=== PATIENT | male | born 1970 | race Caucasian/White ===

== ENCOUNTER 2022-01-15 11:07 | Emergency (ER) | payer BC ==
[2022-01-15 11:59] LABS: Basophils % (A) 0 %; Eosinophils # (A) 0.1 k/uL (0-0.7); Eosinophils % (A) 1 %; HCT 30.4 % (39.0-53.0); HGB 9.7 gm/dL (13.0-17.5); Lymphocytes # (A) 0.7 k/uL (1.0-4.8); Lymphocytes % (A) 5 %; MCH 32.1 pg (25.0-35.0); MCV 100.4 fL (80.0-100.0); Mean Platelet Volume 7.9; Monocytes # (A) 0.8 k/uL (0-1.0); Monocytes % (A) 5 %; Neutrophils # (A) 12.7 k/uL (1.3-7.7); Neutrophils % (A) 89 %; Platelet Count 287 k/uL (150-450); RBC 3.03 m/uL (4.30-5.90); RDW 12.3 % (11.5-15.5); WBC 14.3 k/uL (3.8-10.6)
[2022-01-15 12:07] LABS: Albumin 4.3 g/dL (3.5-5.0); Calcium 8.9 mg/dL (8.4-10.2); Potassium 4.9 mmol/L (3.5-5.1); Total Bilirubin 1.3 mg/dL (0.2-1.3); Total Protein 6.5 g/dL (6.3-8.2)
[2022-01-15] MEDS ORDERED: PANTOPRAZOLE 40 MG/10 ML VIAL IVP STA (12:12)
[2022-01-15] MEDS ORDERED: SODIUM CHLORIDE 0.9% 500 ML 500 ML IV ONE ×2 (12:12→13:10)
--- NOTE | 2022-01-15 12:12 | ED ---
General Adult HPI - General Chief complaint: GI Bleed Stated complaint: Fall/SOB Time Seen by Provider: 01/15/22 12:02 Source: patient, family, RN notes reviewed, old records reviewed Mode of arrival: wheelchair Limitations: no limitations - History of Present Illness Initial comments: 51-year-old male presents for evaluation of "not feeling well". He states he has not felt well for several weeks. He's had some intermittent abdominal pain. Over the past one week he's had dark red rectal bleeding. He states he's had chills without measured fever. He had a fall yesterday secondary to weakness and injured the left side of his chest wall. His had some pain associated with this as well. He does admit to alcohol use. - Related Data Allergies Allergy/AdvReac Type Severity Reaction Status Date / Time No Known Allergies Allergy Verified 01/15/22 11:31 Review of Systems ROS Statement: Those systems with pertinent positive or pertinent negative responses have been documented in the HPI. ROS Other: All systems not noted in ROS Statement are negative. Past Medical History Past Medical History: No Reported History History of Any Multi-Drug Resistant Organisms: None Reported Past Surgical History: No Surgical Hx Reported Past Psychological History: No Psychological Hx Reported Smoking Status: Current every day smoker Past Alcohol Use History: Abuse, Daily Past Drug Use History: None Reported General Exam Limitations: no limitations General appearance: alert, in no apparent distress Head exam: Present: atraumatic, normocephalic Eye exam: Present: normal appearance, PERRL ENT exam: Present: mucous membranes dry Neck exam: Present: normal inspection. Absent: tenderness, meningismus Respiratory exam: Present: normal lung sounds bilaterally. Absent: respiratory distress, wheezes Cardiovascular Exam: Present: normal rhythm, tachycardia GI/Abdominal exam: Present: soft, distended, hernia Rectal exam: Absent: black stool, bloody stool, hemorrhoids Extremities exam: Present: normal inspection, normal capillary refill. Absent: calf tenderness Neurological exam: Present: alert, oriented X3, CN II-XII intact. Absent: motor sensory deficit Psychiatric exam: Present: flat affect Skin exam: Present: warm, pallor Course Vital Signs 01/15/22 01/15/22 11:25 14:55 Temperature 97.6 F Pulse Rate 107 H 98 Respiratory 22 18 Rate Blood Pressure 90/61 116/97 O2 Sat by Pulse 98 98 Oximetry EKG Findings - EKG Comments: EKG Findings:: EKG: Sinus tachycardia, rate of 111, NJ interval 147, QRS duration 90, QTC 372, no ST segment elevation. Medical Decision Making - Medical Decision Making 51-year-old male who presents with generalized weakness, one-week of suspected lower GI bleed and a fall which occurred yesterday. Patient did have left-sided chest pain and very faint ecchymosis over the left lateral chest wall. Workup was initiated including chest x-ray lateral rib fractures. CT of the abdomen was ordered which showed large renal hematoma with perinephric hemorrhage. Hemoglobin is 9.7 with no old for comparison. He does have a mild leukocytosis. Additionally the lactic acid is significantly elevated at 8. White blood cell count 14. Patient does respond well to initial fluid bolus. Additionally 1 unit of packed RBCs disorder. I discussed the case at length with Dr. Samantha escudero for urology after review the imaging it is felt that the patient will be better served with transfer to higher level of care. Additionally given a history of rectal bleeding over the past one week the patient should be transferred as this institution does not have gastroenterology currently. He's given fluids, empiric antibiotics were ordered for elevated white blood cell count, hypotension and lactic acidosis. 2 g Rocephin given. Blood cultures are pending. No source of infection is identified currently. He will be transferred to [facility], case discussed with Dr. Sparks. - Lab Data Result diagrams: 01/15/22 11:46 01/15/22 11:46 Lab Results 01/15/22 01/15/22 01/15/22 Range/Units 11:46 11:46 11:46 WBC 14.3 H (3.8-10.6) k/uL RBC 3.03 L (4.30-5.90) m/uL Hgb 9.7 L (13.0-17.5) gm/dL Hct 30.4 L (39.0-53.0) % MCV 100.4 H (80.0-100.0) fL MCH 32.1 (25.0-35.0) pg MCHC 32.0 (31.0-37.0) g/dL RDW 12.3 (11.5-15.5) % Plt Count 287 (150-450) k/uL MPV 7.9 Neutrophils % 89 % Lymphocytes % 5 % Monocytes % 5 % Eosinophils % 1 % Basophils % 0 % Neutrophils # 12.7 H (1.3-7.7) k/uL Lymphocytes # 0.7 L (1.0-4.8) k/uL Monocytes # 0.8 (0-1.0) k/uL Eosinophils # 0.1 (0-0.7) k/uL Basophils # 0.0 (0-0.2) k/uL PT 9.9 (9.0-12.0) sec INR 0.9 (<1.2) APTT 21.0 L (22.0-30.0) sec Sodium 132 L (137-145) mmol/L Potassium 4.9 (3.5-5.1) mmol/L Chloride 94 L (98-107) mmol/L Carbon Dioxide 20 L (22-30) mmol/L Anion Gap 18 mmol/L BUN 24 H (9-20) mg/dL Creatinine 1.71 H (0.66-1.25) mg/dL Est GFR (CKD-EPI)AfAm 52 (>60 ml/min/1.73 sqM) Est GFR (CKD-EPI)NonAf 45 (>60 ml/min/1.73 sqM) Glucose 191 H (74-99) mg/dL Lactic Ac Sepsis Rflx Plasma Lactic Acid Jorgito (0.7-2.0) mmol/L Calcium 8.9 (8.4-10.2) mg/dL Magnesium (1.6-2.3) mg/dL Total Bilirubin 1.3 (0.2-1.3) mg/dL AST 33 (17-59) U/L ALT 33 (4-49) U/L Alkaline Phosphatase 50 (38-126) U/L Troponin I (0.000-0.034) ng/mL Total Protein 6.5 (6.3-8.2) g/dL Albumin 4.3 (3.5-5.0) g/dL Lipase (23-300) U/L Serum Alcohol mg/dL Blood Type Blood Type Confirm Blood Type Recheck Bld Type Recheck Status Antibody Screen Crossmatch Spec Expiration Date 01/15/22 01/15/22 01/15/22 Range/Units 11:46 11:46 12:12 WBC (3.8-10.6) k/uL RBC (4.30-5.90) m/uL Hgb (13.0-17.5) gm/dL Hct (39.0-53.0) % MCV (80.0-100.0) fL MCH (25.0-35.0) pg MCHC (31.0-37.0) g/dL RDW (11.5-15.5) % Plt Count (150-450) k/uL MPV Neutrophils % % Lymphocytes % % Monocytes % % Eosinophils % % Basophils % % Neutrophils # (1.3-7.7) k/uL Lymphocytes # (1.0-4.8) k/uL Monocytes # (0-1.0) k/uL Eosinophils # (0-0.7) k/uL Basophils # (0-0.2) k/uL PT (9.0-12.0) sec INR (<1.2) APTT (22.0-30.0) sec Sodium (137-145) mmol/L Potassium (3.5-5.1) mmol/L Chloride (98-107) mmol/L Carbon Dioxide (22-30) mmol/L Anion Gap mmol/L BUN (9-20) mg/dL Creatinine (0.66-1.25) mg/dL Est GFR (CKD-EPI)AfAm (>60 ml/min/1.73 sqM) Est GFR (CKD-EPI)NonAf (>60 ml/min/1.73 sqM) Glucose (74-99) mg/dL Lactic Ac Sepsis Rflx Plasma Lactic Acid Jorgito 8.2 H* (0.7-2.0) mmol/L Calcium (8.4-10.2) mg/dL Magnesium (1.6-2.3) mg/dL Total Bilirubin (0.2-1.3) mg/dL AST (17-59) U/L ALT (4-49) U/L Alkaline Phosphatase (38-126) U/L Troponin I <0.012 (0.000-0.034) ng/mL Total Protein (6.3-8.2) g/dL Albumin (3.5-5.0) g/dL Lipase (23-300) U/L Serum Alcohol mg/dL Blood Type A Positive Blood Type Confirm Blood Type Recheck No Previous Record Bld Type Recheck Status CABO Indicated Antibody Screen NEGATIVE Crossmatch See Detail Spec Expiration Date 01/18/2022 - 231101/15/22 01/15/22 01/15/22 Range/Units 12:14 12:18 12:26 WBC (3.8-10.6) k/uL RBC (4.30-5.90) m/uL Hgb (13.0-17.5) gm/dL Hct (39.0-53.0) % MCV (80.0-100.0) fL MCH (25.0-35.0) pg MCHC (31.0-37.0) g/dL RDW (11.5-15.5) % Plt Count (150-450) k/uL MPV Neutrophils % % Lymphocytes % % Monocytes % % Eosinophils % % Basophils % % Neutrophils # (1.3-7.7) k/uL Lymphocytes # (1.0-4.8) k/uL Monocytes # (0-1.0) k/uL Eosinophils # (0-0.7) k/uL Basophils # (0-0.2) k/uL PT (9.0-12.0) sec INR (<1.2) APTT (22.0-30.0) sec Sodium (137-145) mmol/L Potassium (3.5-5.1) mmol/L Chloride (98-107) mmol/L Carbon Dioxide (22-30) mmol/L Anion Gap mmol/L BUN (9-20) mg/dL Creatinine (0.66-1.25) mg/dL Est GFR (CKD-EPI)AfAm (>60 ml/min/1.73 sqM) Est GFR (CKD-EPI)NonAf (>60 ml/min/1.73 sqM) Glucose (74-99) mg/dL Lactic Ac Sepsis Rflx Y Plasma Lactic Acid Jorgito (0.7-2.0) mmol/L Calcium (8.4-10.2) mg/dL Magnesium 1.5 L (1.6-2.3) mg/dL Total Bilirubin (0.2-1.3) mg/dL AST (17-59) U/L ALT (4-49) U/L Alkaline Phosphatase (38-126) U/L Troponin I (0.000-0.034) ng/mL Total Protein (6.3-8.2) g/dL Albumin (3.5-5.0) g/dL Lipase 56 (23-300) U/L Serum Alcohol <10 mg/dL Blood Type Blood Type Confirm A Positive Blood Type Recheck Bld Type Recheck Status Antibody Screen Crossmatch Spec Expiration Date Critical Care Time Critical Care Time: Yes Total Critical Care Time: 35 Disposition Clinical Impression: Hematochezia, Renal hematoma, left, Lactic acidosis, Acute blood loss anemia, Rib fractures Disposition: OTHER INSTITUTION NOT DEFINED Condition: Serious Is patient prescribed a controlled substance at d/c from ED?: No Referrals: None,Stated [Primary Care Provider] - 1-2 days Time of Disposition: 14:45 - Out of Hospital Transfer - Req. Specs Out of Hospital Transfer - Requested Specifics: Other Emergency Center (Transfer to [facility])
[2022-01-15 12:18] LABS: INR 0.9 (<1.2); Prothrombin Time 9.9 sec (9.0-12.0)
--- NOTE | 2022-01-15 13:00 | XR ---
EXAMINATION TYPE: XR chest 2V DATE OF EXAM: 01/15/2022 COMPARISON: NONE HISTORY: Left-sided chest pain following a fall TECHNIQUE: Frontal and lateral views of the chest are obtained. FINDINGS: There is pleural thickening along the left hemithorax and there is a small left pleural ef fusion. There is no pneumothorax. There appear to be displaced fractures of the left sixth and sevent h ribs although dedicated rib films would be useful for better evaluation. Heart size normal vasculature is not congested. There is no airspace consolidation. . IMPRESSION: Probable left rib fractures with displacement with pleural hematoma and small pleural ef fusion. There is no pneumothorax. Dedicated left rib radiographs could be useful for further evaluati on.
[2022-01-15] MEDS ORDERED: cefTRIAXone IN SWFI 1,000 MG/10 ML SYRINGE IVP STA (13:11)
[2022-01-15 13:14] LABS: Alcohol <10 mg/dL; Lipase 56 U/L (23-300); Magnesium 1.5 mg/dL (1.6-2.3)
[2022-01-15] MEDS ORDERED: SODIUM CHLORIDE 0.9% 1,000 ML IV SCH (13:15)
[2022-01-15] MEDS ORDERED: HYDROmorphone 1 MG/ML 1 ML SYRINGE IVP STA (13:30)
[2022-01-15] MEDS ORDERED: MAGNESIUM SULFATE-D5W PMX 1 GM in DEXTROSE/WATER 1 100ML.BAG IVPB ONE (13:31)
--- NOTE | 2022-01-15 14:15 | CT ---
EXAMINATION TYPE: CT abdomen pelvis w con DATE OF EXAM: 01/15/2022 COMPARISON: None HISTORY: generalized pain, GI bleed CT DLP: 1332.9 mGycm Automated exposure control for dose reduction was used. TECHNIQUE: Helical acquisition of images was performed from the lung bases through the pelvis. CONTRAST: Performed without Oral Contrast and with IV Contrast, patient injected with 100 mL of Isovue 300. FINDINGS: The visualized lung bases are clear but there is a small left pleural effusion. There is a large subcapsular fluid collection of the left kidney consistent with acute hemorrhage. Th ere is marked stranding of the perirenal fascia and left paracolic gutter consistent with acute hemor rhage. The left kidney excretes contrast promptly and symmetrically with the right kidney and there i s no hydronephrosis bilaterally. There are 2, 2-3 mm nonobstructing right renal calcifications. The caliber of the abdominal aorta is normal. The gallbladder is unremarkable. There is no focal mass or organomegaly involving the liver, pancreas or spleen. The bowel loops are normal in caliber is no evidence of obstruction. There is a large periumbilical h ernia containing fat but no bowel loops. There is no free intraperitoneal air. There is marked diverticulosis of the colon without CT evidence of diverticulitis. There is no pelvic mass, abscess or adenopathy. The osseous structures are intact. IMPRESSION: 1. Marked acute hemorrhage in the left kidney with a large capsular hematoma and hemorrhage within th e pararenal fascia and left paracolic gutter 2. No hydronephrosis or solid renal masses. 3. 2 small nonobstructing right renal calcifications. 4. small left pleural effusion. 5. Large periumbilical hernia containing fat but no bowel loops.
[2022-01-15 14:56] VITALS: RESP 18
[2022-01-15 15:40] VITALS: TEMP 98.2
[2022-01-15 16:10] VITALS: BP 132/67; PULSE 97
== END 2022-01-15 16:11 | disposition other institution (70) ==
LOC: EC 11:07
DX: S22.42XA Multiple fractures of ribs, left side, initial encounter for closed fracture (principal); E87.2 Acidosis; K92.1 Melena; D62 Acute posthemorrhagic anemia; D72.829 Elevated white blood cell count, unspecified; F17.200 Nicotine dependence, unspecified, uncomplicated; W19.XXXA Unspecified fall, initial encounter
CPT/HCPCS: 36415; 93005; 86900; 86901; 80053; 83605; 83690; 83735; 84484; 85025; 85610; 85730; 86850; 86920; 87040; 80320; 71046; 74177; 99291; 96365; 96375; 96361; P9016; J0696; J1170; J3475; C9113; Q9967